=== PATIENT | male | born 1975 | race Hispanic/Latino ===

== ENCOUNTER → 2020-04-16 | Outpatient (CLI) | payer BC | END | disposition home or self-care (01) | LOC: OIH 15:32 | PROVIDERS: ATTEND Family Medicine | DX: R91.8 Other nonspecific abnormal finding of lung field (principal); R93.89 Abnormal findings on diagnostic imaging of other specified body structures | CPT/HCPCS: 71046 ==

== ENCOUNTER 2020-04-22 07:17 | Day surgery (SDC) | payer BC ==
[~2020-04-22] VITALS: Ht 182.9 cm; Wt 129.3 kg
[~2020-04-22 07:17] MED LIST: SODIUM CHLORIDE 0.9% 1000ML 1,000 ML IV ONE
[2020-04-22] MEDS ORDERED: VALS160T29 PO (10:02)
[2020-04-22] MEDS ORDERED: PANT40GR PO (10:02)
[2020-04-22] MEDS ORDERED: MINO100C6 PO (10:02)
[2020-04-22] MEDS ORDERED: PROPOFOL 10 MG/ML 20ML VIAL IV ONE ×2 (10:40)
[2020-04-22 11:10] VITALS: BP 102/57
[2020-04-22 11:15] VITALS: BP 100/52
[2020-04-22 11:20] VITALS: BP 103/54
[2020-04-22 11:25] VITALS: BP 108/62
[2020-04-22 11:30] VITALS: BP 112/68
== END 2020-04-22 11:50 | disposition home or self-care (01) ==
LOC: DAH 07:17
PROVIDERS: ATTEND Internal Medicine Gastroenterology
DX: K29.50 Unspecified chronic gastritis without bleeding (principal); K31.89 Other diseases of stomach and duodenum; Z20.828 Contact with and (suspected) exposure to other viral communicable diseases; K59.00 Constipation, unspecified; R13.10 Dysphagia, unspecified; I10 Essential (primary) hypertension; Z87.19 Personal history of other diseases of the digestive system; Z79.899 Other long term (current) drug therapy; Z98.890 Other specified postprocedural states; Z72.89 Other problems related to lifestyle
CPT/HCPCS: 43237; 43239; A4215; A4221; A4222; A4223; A4606; A4620; A4663; C9803; J2704 ×2; J7030; U0003